=== PATIENT | male | born 1990 | race African-American/Black ===

== ENCOUNTER 2016-12-18 09:15 | Emergency (ER) | payer SELFPAY ==
[~2016-12-18] VITALS: Ht 180.3 cm; Wt 73.8 kg
[2016-12-18 11:05] VITALS: BP 142/62
[2016-12-18 11:15] LABS: BILIRUBIN NEGATIVE; BLOOD NEGATIVE; COLOR YELLOW ((YELLOW)); GLUCOSE (STRIP) NEGATIVE; KETONES NEGATIVE; LEUKOCYTES NEGATIVE; NITRITE NEGATIVE; PROTEIN (STRIP) 30; SPECIFIC GRAVITY 1.018 (1.000-1.030); UROBILINOGEN 0.2 MG/DL (0.2-1.0)
[2016-12-18 11:16] LABS: ADD MIUA? NO; UCUL ADDED? NO
== END 2016-12-18 11:06 | disposition home or self-care (01) ==
LOC: EME 09:15
PROVIDERS: Physician Assistant
DX: R36.9 Urethral discharge, unspecified (principal); F17.200 Nicotine dependence, unspecified, uncomplicated
CPT/HCPCS: 81003; 99281; 99283; J0696

== ENCOUNTER 2017-01-10 15:59 | Emergency (ER) | payer SELFPAY ==
[~2017-01-10] VITALS: Ht 182.9 cm; Wt 75.7 kg
[2017-01-10 19:35] VITALS: BP 156/87
[2017-01-11 13:52] LABS: CHLAMYDIA TRACHOMATIS NEGATIVE; NEISSERIA GONORRHOEAE NEGATIVE
== END 2017-01-10 19:37 | disposition home or self-care (01) ==
LOC: EME 15:59
PROVIDERS: Physician Assistant Medical
DX: A64 Unspecified sexually transmitted disease (principal); F17.200 Nicotine dependence, unspecified, uncomplicated
CPT/HCPCS: 87491; 87591; 99281; 99283; J0696

== ENCOUNTER 2017-03-13 17:49 | Emergency (ER) | payer SELFPAY ==
[~2017-03-13] VITALS: Ht 180.3 cm; Wt 75.2 kg
[2017-03-13 17:55] VITALS: BP 122/89
[2017-03-15 13:13] LABS: CHLAMYDIA TRACHOMATIS NEGATIVE; NEISSERIA GONORRHOEAE NEGATIVE
== END 2017-03-13 20:03 | disposition home or self-care (01) ==
LOC: EME 17:49
PROVIDERS: Physician Assistant
DX: N34.2 Other urethritis (principal); Z87.891 Personal history of nicotine dependence
CPT/HCPCS: 87491; 87591; 99281; 99283; J0696